=== PATIENT | male | born 1950 | race Caucasian/White ===

== ENCOUNTER 2024-10-30 12:13 | Emergency (ER) | payer MEDICARE, SELFPAY ==
[2024-10-30 12:13] VITALS: BP 157/99; PULSE 109; RESP 16; TEMP 37.1; O2SAT 97
--- NOTE | 2024-10-30 12:15 | ED_ITS ---
HPI - Skin/Abscess/Foreign Bdy General Chief complaint: Skin/Abscess/Foreign Body Stated complaint: left arm swelling and redness Time Seen by Provider: 10/30/24 12:14 Source: patient and EMS Mode of arrival: EMS Limitations: no limitations History of Present Illness HPI narrative: patient is a 74-year-old male with a left elbow insect bite yesterday with a residual redness / cellulitis around the same area of the elbow but not circumferentially. He was sitting outside smoking a cigarette yesterday on his porch and felt an insect bite but did not identify the insect. MD complaint: rash ( Left elbow) Onset (ago): day(s) ( 2) Location: LUE ( left elbow) Severity: moderate Severity scale (1-10): 3 Quality: burning, aching and pruritic Pain Consistency: constant Relieving factors: none Exacerbating factors: none Context: witnessed insect bite ( unclear of which insect did bite him but he felt the bite) Associated symptoms: denies other symptoms Treatments prior to arrival: none Related Data Allergies Allergy/AdvReac Type Severity Reaction Status Date / Time Penicillins Allergy Hives Verified 10/30/24 12:25 Review of Systems Review of Systems: All systems reviewed & are unremarkable except as noted in HPI and below Constitutional: Constitutional: Reports no additional constitutional complaints Eyes: Eyes: Reports no additional eye complaints ENT: Reports system reviewed and no additional complaints, except as documented Cardiovascular: Cardiovascular: Reports no additional cardiovascular complaints Respiratory: Respiratory: Reports no additional respiratory complaints Gastrointestinal: Gastrointestinal: Reports no additional gastrointestinal complaints Genitourinary: Genitourinary: Reports no additional male genitourinary complaints Musculoskeletal: Musculoskeletal: Reports no additional musculoskeletal complaints Integumentary/Breasts: Skin/Breast: Reports system reviewed and no additional complaints, except as docu Neurologic: Reports system reviewed and no additional complaints, except as documented Psychiatric: Psychiatric: Reports no additional psychiatric complaints Endocrine: Endocrine: Reports no additional endocrine complaints Hematologic/Lymphatic: Hematologic/Lymphatic: Reports no additional hematologic/lymphatic complaints Allergic/Immunologic: Allergic/Immunologic: Reports no additional allergic/immunologic complaints Exam Const: General: healthy appearing Nutritional Appearance: well nourished Orientation/consciousness: patient oriented x3 HENMT: Head: normal to inspection Ears: external ears normal Face/Nose/Sinus: Normal external nose present Eyes: Conjunctivae: conjunctivae normal Pupils: Equal, round and reactive pupils present EOM: EOMs intact bilaterally Neck: Neck: normal visual inspection Chest: Chest palpation & inspection: normal inspection of the chest Resp: Effort & Inspection: normal respiratory effort and not labored Auscultation: clear to auscultation bilaterally and no crackles Cardio: Rate: regular rate Rhythm: regular rhythm Heart sounds: no murmurs GI: Inspection: non-distended GI Palp: Yes Soft to palpation and No Tenderness to palpation present (GI) Auscultation: normal bowel sounds : General: Yes bladder normal to palpation Back/Spine/Pelvis: Back: no CVA tenderness Skin: General skin exam: normal color Rashes: rash noted Wounds: no wounds Other: left elbow has erythema /redness around the lateral aspect to medial aspect of the elbow but not circumferentially and it spreads cranially and caudally to a degree (area was outlined with a black marker ) Neuro: General: patient oriented x3, moves all extremities and no meningeal signs Cranial nerves: Yes Nystagmus not present Speech: normal speech Gait exam (Neuro): Normal gait present Extrem: General: normal to inspection Psych: Mental Status: mental status grossly normal Affect: normal affect Attitude: cooperative Course Vital Signs Vital signs: Vital Signs Temperature 37.1 C 10/30/24 12:13 Pulse Rate 109 H 10/30/24 12:13 Respiratory Rate 16 10/30/24 12:13 Blood Pressure 157/99 H 10/30/24 12:13 Pulse Oximetry 97 10/30/24 12:13 Oxygen Delivery Room Air 10/30/24 12:13 Temperature 37.1 C 10/30/24 12:13 Pulse Rate 109 H 10/30/24 12:13 Respiratory Rate 16 10/30/24 12:13 Blood Pressure 157/99 H 10/30/24 12:13 Pulse Oximetry 97 10/30/24 12:13 Oxygen Delivery Room Air 10/30/24 12:13 MDM - Skin/Abscess/Foreign Bdy MDM Narrative Medical decision making narrative: patient is a 74-year-old male with a left elbow cellulitis after insect bite yesterday. We will do Bactrim. Patient does not need labs at this time and should get better without further intervention. Discharge Plan Discharge Clinical Impression: Cellulitis Qualifiers: Site of cellulitis: extremity Site of cellulitis of extremity: upper extremity Laterality: left Qualified Code(s): L03.114 - Cellulitis of left upper limb Insect bites Qualifiers: Encounter type: initial encounter Site of insect bite: upper arm Laterality: left Qualified Code(s): S40.862A - Insect bite (nonvenomous) of left upper arm, initial encounter Patient Disposition: Home Condition: Stable Instructions: Antibiotic Form, Cellulitis (ED) Patient Language: Greenlandic Prescriptions: New sulfamethoxazole-trimethoprim [Bactrim DS] 800-160 mg tablet 1 tablet PO BID 10 Days Qty: 20 0RF Follow-up/Referrals: UNKNOWN,DOCTOR [Non-Staff] - Time of Disposition: 12:38
--- OUTSIDE RECORDS SUMMARY | 2024-10-30 12:51 | XMS_ITS | Encounter Summary ---
Author Organization [facility] Address [address] [place] [address] Care Team Providers Care Guest Services Associate Name Role Phone None, Provider Primary Care Provider Unavaila ble Encounter Details Date Type Department Care Team (Late st Contact Info) Description 09/17/2018 Abstract SFL CONVERSION [address] [place] [address] , Generic Conversion, Social History Tobacco Use Types Packs/Day Years Used Date Smoking Tobacco: Never Assessed Sex and Gender Information Value Date Recorded Sex Assigned at Not on file Legal Sex Male 8:22 PM CDT Gender Identity Not on file Sexual Orientation Not on file documented as of this encounter Plan of Treatment Not on file documented as of this encounter Visit Diagnoses Not on filedocumented in this encounter Care Teams Guest Services Associate Relationship Specialty Start Date End Date None, Provider, PCP - General 12/01/19 documented as of this encounter
--- OUTSIDE RECORDS SUMMARY | 2024-10-30 12:51 | XMS_ITS | Clinical Summary ---
Author Organization [facility] Address [id number] [place] [address] Care Team Providers Care Die Tester Name Role Phone None, Provider MD Primary Care Provider Unavaila ble Allergies No known active allergies Medications No known medications Social History Tobacco Use Types Packs/Day Years Used Date Smoking Tobacco: Every Day Cigarettes Smokeless Tobacco: Never Alcohol Use Standard Drinks/Week Comments Yes 0 (1 standard drink = 0.6 oz pur e alcohol) rarely Sex and Gender Information Value Date Recorded Sex Assigned at Not on file Legal Sex Male 8:22 PM CDT Gender Identity Not on file Sexual Orientation Not on file Last Filed Vital Signs Vital Sign Reading Time Taken Comments Blood Pressure 182/103 12/01/2019 2:12 PM CDT Pulse 96 12/01/2019 2:12 PM CDT Temperature 36.1 C (97 F) 12/01/2019 2:12 PM CDT Respiratory Rate 18 12/01/2019 2:12 PM CDT Oxygen Saturation 99% 12/01/2019 2:12 PM CDT Inhaled Oxygen Concentration - - Weight 72.6 kg (160 lb) 12/01/2019 2:12 PM CDT Height 167.6 cm (5' 6) 12/01/2019 2:12 PM CDT Body Mass Index 25.82 12/01/2019 2:12 PM CDT Plan of Treatment Health Maintenance Due Date Last Done Comments Colorectal Cancer Screening Colonoscopy (10 Years) 1950 Hepatitis C 1968 DTaP, Tdap and Td Vaccines ( 1 - Tdap) 1969 Pneumococcal Vaccine: 50+ Ye ars (1 of 2 - PCV) 1969 Zoster Vaccines (1 of 2) 2000 Annual Medicare Wellness Visit 2015 COVID-19 Vaccine (1 - 2023-2 5 season) 2023 RSV Immunization or 60+ Years (1 - 1-dose 75+ series) 2025 Meningococcal B Vaccine Aged Out No l onger eligible based on patient's age to complete this topic Meningococcal Vaccine Aged Out No colin salvador eligible based on patient's age to complete this topic RSV Immunizations Under 20 Months Aged Out No longer eligible based on patient's age to complete this topic Insurance MEDICARE Care Teams Die Tester Relationship Specialty Start Date End Date None, Provider, PCP - General 12/01/19
== END 2024-10-30 12:55 | disposition home or self-care (01) ==
PROVIDERS: Emergency Provider Emergency Medicine; PCP Internal Medicine
DX: L03.114 Cellulitis of left upper limb (principal); S40.862A Insect bite (nonvenomous) of left upper arm, initial encounter; W57.XXXA Bitten or stung by nonvenomous insect and other nonvenomous arthropods, initial encounter
CPT/HCPCS: 99283

== ENCOUNTER 2024-11-29 11:46 | Emergency (ER) | payer MEDICARE, SELFPAY ==
--- NOTE | ~2024-11-29 | XR_ITS ---
EXAMINATION: XR chest 1V portable DATE: 11/29/2024 12:19 INDICATION: Shortness of breath TECHNIQUE: frontal view of the chest was obtained. COMPARISON: Chest radiograph dated 12/01/2006 FINDINGS: Mild opacities at the left lower lung zone which could represent atelectasis or pneumonia. No pleural effusion or pneumothorax. Heart size is normal. Small to moderate-sized hiatal hernia. IMPRESSION: 1. Opacities in the left lower lung zone which could represent atelectasis or pneumonia. 2. Small to moderate-sized hiatal hernia. Reviewed, dictated and finalized at location A. IMPRESSION: 1. Opacities in the left lower lung zone which could represent atelectasis or p neumonia. 2. Small to moderate-sized hiatal hernia.
[2024-11-29 11:49] VITALS: BP 171/106; PULSE 86; RESP 20; TEMP 36.7; O2SAT 97
--- NOTE | 2024-11-29 11:57 | ECG_ITS ---
Test Date: 2024-11-29 12:01:31 Measurements Intervals [place] Rate: 84 P: -21 [place]: 136 QRS: 56 QRSD: 88 T: 65 QT: 341 QTc: 405 Interpretive Statements SINUS RHYTHM BASELINE ARTIFACT- I, II, III, AVR, AVL, AVF, V1 NORMAL ECG No previous ECG available for comparison Electronically Signed On 11-29-2024 14:08:28 CDT by Chadwick Ceballos D.O.
--- NOTE | 2024-11-29 11:59 | ED.GENADULT ---
HPI - General Adult General Chief complaint: Recheck/Abnormal Lab/Rx Stated complaint: sent by pcp Time Seen by Provider: 11/29/24 11:51 Source: patient Mode of arrival: ambulatory Limitations: no limitations History of Present Illness HPI narrative: 74-year-old male, smoker was sent from his primary care physician's office for -- heart murmur. No chest pain or shortness of breath. No leg swelling. -- Patient went to see a primary care physician for erythematous itchy rash on his back the past 6 months. No fever or chills. Associated symptoms: denies other symptoms Related Data Home Medications ?Medication ?Instructions ?Recorded ?Confirmed ?Last Taken ?Type No Home Medications 11/29/24 11/29/24 Unknown History Allergies Allergy/AdvReac Type Severity Reaction Status Date / Time Penicillins Allergy Hives Verified 11/29/24 12:07 Review of Systems Review of Systems: All systems reviewed & are unremarkable except as noted in HPI and below Constitutional: Constitutional: Reports as per HPI and Reports no additional constitutional complaints Eyes: Eyes: Reports as per HPI and Reports no additional eye complaints ENT: Reports system reviewed and no additional complaints, except as documented and Reports as per HPI Cardiovascular: Cardiovascular: Reports as per HPI and Reports no additional cardiovascular complaints Respiratory: Respiratory: Reports as per HPI, Reports no additional respiratory complaints and Reports cough Gastrointestinal: Gastrointestinal: Reports as per HPI and Reports no additional gastrointestinal complaints Genitourinary: Genitourinary: Reports no additional male genitourinary complaints and Reports as per HPI Musculoskeletal: Musculoskeletal: Reports no additional musculoskeletal complaints and Reports as per HPI Integumentary/Breasts: Skin/Breast: Reports system reviewed and no additional complaints, except as docu Comments: Erythematous rash on his back which is itchy Neurologic: Reports system reviewed and no additional complaints, except as documented and Reports as per HPI Psychiatric: Psychiatric: Reports no additional psychiatric complaints and Reports as per HPI Endocrine: Endocrine: Reports no additional endocrine complaints and Reports as per HPI Hematologic/Lymphatic: Hematologic/Lymphatic: Reports no additional hematologic/lymphatic complaints and Reports as per HPI Allergic/Immunologic: Allergic/Immunologic: Reports no additional allergic/immunologic complaints and Reports as per HPI Exam Narrative: blood pressure is 171/106 Const: General: no acute distress Orientation/consciousness: patient oriented x3 Limitations: no limitations HENMT: Head: normal to inspection Ears: external ears normal Face/Nose/Sinus: Normal external nose present Face and sinus: normal facial exam Mouth: Yes Normal oral and palatal mucosa present Throat: posterior oropharynx normal Eyes: Conjunctivae: conjunctivae normal Pupils: Equal, round and reactive pupils present EOM: EOMs intact bilaterally Direct Ophthalmoscopy: no photophobia Neck: Neck: normal visual inspection, no lymphadenopathy and no meningeal signs Chest: Chest palpation & inspection: normal inspection of the chest Resp: Effort & Inspection: normal respiratory effort Auscultation: diminished lung sounds Cardio: Rate: regular rate Rhythm: regular rhythm GI: GI Palp: Yes Soft to palpation Auscultation: normal bowel sounds Other: no tenderness/ rigidity / rebound. Back/Spine/Pelvis: Back: no CVA tenderness Skin: General skin exam: normal color Other: Erythematous rash on his back Neuro: General: patient oriented x3, moves all extremities, no meningeal signs, no focal motor deficits and CN's II-XI intact bilaterally Cranial nerves: Yes Nystagmus not present Speech: normal speech Psych: Mental Status: mental status grossly normal Affect: normal affect Attitude: cooperative Course Course Emergency Course: hypertension-- follow-up with Dr. Neri systolic murmur in the aortic area suggestive of aortic stenosis chronic bronchitis Vital Signs Vital signs: Vital Signs Temperature 36.7 C 11/29/24 11:49 Pulse Rate 86 11/29/24 11:49 Respiratory Rate 11/29/24 11:49 Blood Pressure 171/106 H 11/29/24 11:49 Pulse Oximetry 97 11/29/24 11:49 Oxygen Delivery Room Air 11/29/24 11:49 Temperature 36.7 C 11/29/24 11:49 Pulse Rate 86 11/29/24 11:49 Respiratory Rate 11/29/24 11:49 Blood Pressure 171/106 H 11/29/24 11:49 Pulse Oximetry 97 11/29/24 11:49 Oxygen Delivery Room Air 11/29/24 11:49 Medical Decision Making [facility] Narrative Medical decision making narrative: hypertension aortic stenosis Differential Diagnosis Differential Diagnosis: mitral regurgitation, Vital Signs Vital Signs: Vital Signs Temperature 36.7 C 11/29/24 11:49 Pulse Rate 86 11/29/24 11:49 Respiratory Rate 11/29/24 11:49 Blood Pressure 171/106 H 11/29/24 11:49 Pulse Oximetry 97 11/29/24 11:49 Oxygen Delivery Room Air 11/29/24 11:49 Temperature 36.7 C 11/29/24 11:49 Pulse Rate 86 11/29/24 11:49 Respiratory Rate 20 11/29/24 11:49 Blood Pressure 171/106 H 11/29/24 11:49 Pulse Oximetry 97 11/29/24 11:49 Oxygen Delivery Room Air 11/29/24 11:49 Lab Data 11/29/24 12:10 11/29/24 12:10 Labs: Lab Results 11/29/24 Range/Units 12:10 WBC 6.7 (4.8-10.8) K/mm3 RBC 4.45 L (4.70-6.10) M/mm3 Hgb 14.0 (12.4-15.3) g/dL Hct 42.2 (37.0-46.0) % MCV 94.8 (78.0-102.0) fL MCH 31.5 H (27.0-31.0) pg MCHC 33.2 (32-36) g/dL RDW 12.2 (11.6-14.4) % Plt Count 326 (150-420) K/mm3 MPV 8.9 (8.7-11.0) fl Immature Gran % (Auto) 0.2 H (0.0-0.0) % Neut % (Auto) 56.7 (50.0-70.0) % Lymph % (Auto) 26.6 (18.0-42.0) % Winston % (Auto) 13.5 H (2.0-11.0) % Eos % (Auto) 2.4 (1.0-6.0) % Baso % (Auto) 0.6 (0.0-1.0) % Lymph # (Auto) 1.77 (1.10-4.50) K/mm3 Winston # (Auto) 0.90 (0.10-0.90) K/mm3 Eos # (Auto) 0.16 (0.02-0.50) K/mm3 Baso # (Auto) 0.04 (0.00-0.10) K/mm3 Abs Immat Gran (auto) 0.01 H (0.00-0.00) K/mm3 Absolute Neuts (auto) 3.78 (1.70-7.20) K/mm3 Absolute Nucleated RBC 0.00 (0.00-0.00) K/mm3 Nucleated RBC % 0.0 (0-0.0) % PT 10.2 (9.50-12.1) Seconds INR 0.9 APTT 27.2 (23.9-30.70) Sec Sodium 136 L (137-145) mmol/L Potassium 4.0 (3.4-5.0) mmol/L Chloride 101 (98-107) mmol/L Carbon Dioxide 29 (22-30) mmol/L Anion Gap 6 (4-12) mmol/L BUN 8 L (9-20) mg/dL Creatinine 0.78 (0.7-1.3) mg/dL Estim Creat Clear Calc 68 ml/min Estimated GFR > 60 (59 - ) Glucose 105 (65-110) mg/dL Calculated Osmolality 280 L (285-295) mOsm/kg Lactic Acid 0.9 (0.4-2.0) mmol/L Calcium 9.4 (8.4-10.2) mg/dL Magnesium 1.7 (1.6-2.3) mg/dL Total Bilirubin 1.0 (0.2-1.3) mg/dL AST 22 (17-59) U/L ALT 12 (6-50) U/L Alkaline Phosphatase 62 (38-126) U/L Total Creatine Kinase 32 L (55-170) U/L Troponin I < 0.012 (0.000-0.034) ng/mL NT-Pro-B Natriuret Pep 240 H (19.9-100) pg/mL Total Protein 6.9 (6.3-8.2) g/dL Albumin 4.0 (3.5-5.1) g/dL Lipase 30 (23-300) U/L TSH 0.433 L (0.465-4.680) uIU/mL ECG Data EKG #1: ECG completion date: 11/29/24 ECG completion time: 12:01 Interpretation: normal sinus rhythm. Normal axis. No ST elevation. Discharge Plan Discharge Clinical Impression: Hypertension Qualifiers: Hypertension type: unspecified Qualified Code(s): I10 - Essential (primary) hypertension Aortic stenosis Qualifiers: Cardiac valve disease etiology: etiology unspecified Qualified Code(s): I35.0 - Nonrheumatic aortic (valve) stenosis Patient Disposition: Home Condition: Stable Instructions: Antibiotic Form, Aortic Stenosis (ED), Hypertension (ED) Patient Language: Georgian Prescriptions: No Action No Home Medications Follow-up/Referrals: Kalen Cagle DO [Primary Care Provider, [facility]] Time of Disposition: 13:08
--- NOTE | 2024-11-29 12:13 | PC.NURSE ---
dr mitchell here and updated on pt.
--- OUTSIDE RECORDS SUMMARY | 2024-11-29 12:13 | XMS_ITS | Encounter Summary ---
Author Organization [facility] Address [address] [place] [address] Care Team Providers Care Solderer Torch Name Role Phone None, Provider Primary Care Provider Unavaila ble Encounter Details Date Type Department Care Team (Late st Contact Info) Description 09/17/2018 Abstract SFL CONVERSION [address] [place] [address] , Generic Conversion, Social History Tobacco Use [...] on filedocumented in this encounter Care Teams Solderer Torch Relationship Specialty Start Date End Date None, Provider, PCP - General 12/01/19 documented as of this encounter
--- OUTSIDE RECORDS SUMMARY | 2024-11-29 12:13 | XMS_ITS | Clinical Summary ---
Author Organization [facility] Address [facility] [place] [address] Care Team Providers Care Marketing Project Coordinator Name Role Phone None, Provider MD Primary [...] complete this topic Insurance MEDICARE Care Teams Marketing Project Coordinator Relationship Specialty Start Date End Date None, Provider, PCP - General 12/01/19
[2024-11-29 12:15] LABS: Hematocrit 42.2 % (37.0-46.0); Hemoglobin 14.0 g/dL (12.4-15.3); Immature Granulocyte Percent A 0.2 % (0.0-0.0); Lymphocytes Absolute Auto 1.77 K/mm3 (1.10-4.50); Mean Corpuscular HGB Conc 33.2 g/dL (32-36); Mean Corpuscular Hemoglobin 31.5 pg (27.0-31.0); Mean Corpuscular Volume 94.8 fL (78.0-102.0); Nucleated Red Blood Cells Absolute Auto 0.00 K/mm3 (0.00-0.00); Nucleated Red Blood Cells Perc 0.0 % (0-0.0); Platelet Count Result 326 K/mm3 (150-420); Red Blood Count 4.45 M/mm3 (4.70-6.10); White Blood Count 6.7 K/mm3 (4.8-10.8)
[2024-11-29 12:28] LABS: Creatine Kinase 32 U/L (55-170); Lipase 30 U/L (23-300); Magnesium 1.7 mg/dL (1.6-2.3)
[2024-11-29 12:29] LABS: Alanine Aminotransferase 12 U/L (6-50); Albumin Level 4.0 g/dL (3.5-5.1); Alkaline Phosphatase 62 U/L (38-126); Anion Gap 6 mmol/L (4-12); Aspartate Amino Transferase 22 U/L (17-59); Bilirubin,Total 1.0 mg/dL (0.2-1.3); Blood Urea Nitrogen 8 mg/dL (9-20); Calcium 9.4 mg/dL (8.4-10.2); Carbon Dioxide 29 mmol/L (22-30); Chloride 101 mmol/L (98-107); Estimated CRCL calculation 68 ml/min; Estimated Glomerular Filt Rate > 60; Glucose 105 mg/dL (65-110); Osmolality Calculated 280 mOsm/kg (285-295); Potassium 4.0 mmol/L (3.4-5.0); Sodium 136 mmol/L (137-145); Total Protein 6.9 g/dL (6.3-8.2)
[2024-11-29 12:30] LABS: INR 0.9; Partial Thromboplastin Time 27.2 Sec (23.9-30.70); Prothrombin Time 10.2 Seconds (9.50-12.1)
[2024-11-29 12:37] LABS: NT Pro B Type Natriuretic Pept 240 pg/mL (19.9-100)
[2024-11-29 12:40] LABS: Troponin I < 0.012 ng/mL (0.000-0.034)
[2024-11-29 12:59] LABS: Thyroid Stimulating Hormone 0.433 uIU/mL (0.465-4.680)
[2024-11-29 13:33] VITALS: BP 161/98; PULSE 80; RESP 20; O2SAT 100
== END 2024-11-29 13:33 | disposition home or self-care (01) ==
PROVIDERS: Emergency Provider Internal Medicine Critical Care Medicine; PCP Family Medicine
DX: I10 Essential (primary) hypertension (principal); I35.0 Nonrheumatic aortic (valve) stenosis; K44.9 Diaphragmatic hernia without obstruction or gangrene; J98.11 Atelectasis; F17.210 Nicotine dependence, cigarettes, uncomplicated
CPT/HCPCS: 36415; 71045; 80053; 82550; 83605; 83690; 83735; 83880; 84443; 84484; 85025; 85610; 85730; 93005; 99284

== ENCOUNTER 2025-01-02 13:50 | Outpatient (CLI) | payer MEDICARE, SELFPAY ==
--- NOTE | 2025-01-02 13:57 | ECHO_ITS ---
Patient Info Name: Kevin Oliveros Age: 74 years : 1950 Gender: Male Ht: 66 in Wt: 195 lbs BSA: 2.06 m2 HR: 90 bpm BP: 198 / 120 mmHg Technical Quality: Good Exam Date: 01/02/2025 1:57 PM Patient Status: O Admit Date: 01/02/2025 Exam Type: CA echo doppler color flow Complete two-dimensional, color flow and Doppler transthoracic echocardiogram is performed. Service Shop Foreman: Katie Yusuf Attending Provider: Kalen Cagle Summary 1. Complete two-dimensional, color flow and Doppler transthoracic echocardiogram is performed. 2. Left ventricular chamber dimension is normal. 3. Left ventricular systolic function is normal, estimated at 60-65. 4. The left ventricular diastolic function is grade I diastolic dysfunction. 5. E/e' 16 is elevated. 6. Left atrial chamber dimension is mildly enlarged. 7. The aortic valve is not well visualized. Cannot determine number of aortic valve leaflets. 8. There is severe aortic valve sclerosis. 9. There is moderate to severe aortic valve stenosis based on a peak velocity of 365 cm/s, mean gradient of 22 mmHg, and aortic valve area of 0.9 cm2. 10. The mitral valve has a mildly calcified annulus. Left Ventricle E/e' 16 is elevated. Left ventricular chamber dimension is normal. Left ventricular systolic function is normal, estimated at 60-65. The left ventricular diastolic function is grade I diastolic dysfunction. Right Ventricle Right ventricular chamber dimension is normal. Right ventricular systolic function is normal and with normal TAPSE 2.1 cm. Left Atria Left atrial chamber dimension is mildly enlarged. Right Atria Right atrial chamber dimension is normal. Aortic Valve The aortic valve is not well visualized. Cannot determine number of aortic valve leaflets. There is severe aortic valve sclerosis. There is no aortic valve regurgitation. There is moderate to severe aortic valve stenosis based on a peak velocity of 365 cm/s, mean gradient of 22 mmHg, and aortic valve area of 0.9 cm2. Pulmonic Valve There is no pulmonic regurgitation. Mitral Valve The mitral valve has a mildly calcified annulus. There is no mitral valve stenosis. There is no mitral valve regurgitation. Tricuspid Valve There is no tricuspid valve regurgitation. Pericardium/Pleural There is no pericardial effusion. Inferior Vena Cava Normal inferior vena cava with >50% collapse upon inspiration consistent with normal right atrial pressure, 5 mmHg. Aorta The aortic root size at the sinus of Valsalva is normal. Left Ventricular Outflow Tract Name Value Normal LVOT 2D LVOT Diameter 2.0 cm LVOT Doppler LVOT Peak Velocity 123 cm/s LVOT Peak Gradient 5 mmHg LVOT Mean Gradient 3 mmHg LVOT VTI 25 cm LVOT VTI/AV VTI Ratio 0.3 LVOT Stroke Volume 76 ml LVOT CO 5.1 l/min LVOT CI 2.5 l/min/m2 Pulmonic Valve Name Value Normal RVOT Doppler RVOT Peak Velocity 84 cm/s RVOT Peak Gradient 3 mmHg PV Doppler PV Peak Velocity 120 cm/s PV Peak Gradient 6 mmHg Mitral Valve Name Value Normal MV Doppler MV Peak Gradient 9 mmHg MV Mean Gradient 4 mmHg MV Area (Cont Eq VTI) 2.3 cm2 MV Diastolic Function MV E Peak Velocity 86 cm/s MV A Peak Velocity 139 cm/s MV E/A 0.6 MV Decel Time (PW) 330 ms MV Annular TDI MV E/e' (Septal) 17.4 MV E/e' (Lateral) 15.5 MV E/e' (Average) 16.4 Tricuspid Valve Name Value Normal Estimated PAP/RSVP RA Pressure 5 mmHg <=5 Aortic Valve Name Value Normal AV Doppler AV Peak Velocity 365 cm/s AV Peak Gradient 37 mmHg AV Mean Gradient 22 mmHg AV VTI 80 cm AV Area (Cont Eq VTI) 0.9 cm2 >=3.0 AV Area (Cont Eq Klever) 1.0 cm2 AV DI (Klever) 0.34 AV Regurgitation 2D LVOT Area 3.1 cm2 Ventricles Name Value Normal LV Dimensions 2D/MM IVS Diastolic Thickness (2D) 0.8 cm 0.6-1.0 LVID Diastole (2D) 4.2 cm 4.2-5.8 LVIW Diastolic Thickness (2D) 1.2 cm 0.6-1.0 LVID Systole (2D) 2.8 cm 2.5-4.0 LVOT Diameter 2.0 cm LV Mass (2D Cubed) 145.69 g 88.00-224.00 LV Mass Index (2D Cubed) 71 g/m2 49-115 Relative Wall Thickness (2D) 0.58 <=0.42 LV Fractional Shortening/Ejection Fraction 2D/MM LV Fractional Shortening (2D) 34 % 25-43 LV EF (2D Teichholz) 63 % LV Diastolic Volume (4C MOD) 105 ml LV EF (4C MOD) 60 % LV Diastolic Volume (2C MOD) 113 ml LV EF (2C MOD) 57 % LV Diastolic Volume (BP MOD) 114 ml 62-150 LV Diastolic Volume Index (BP MOD) 55 ml/m2 34-74 LV Systolic Volume (BP MOD) 45 ml 21-61 LV Systolic Volume Index (BP MOD) 22 ml/m2 11-31 LV EF (BP MOD) 61 % 52-72 LV Diastolic Length (4C) 8.3 cm LV Systolic Length (4C) 7.2 cm LV Stroke Volume (4C MOD) 63 ml Atria Name Value Normal LA Dimensions LA Volume (4C A-L) 42 ml LA Volume (BP A-L) 49 ml RA Dimensions RA Systolic Major [place] Length (4C) 4.7 cm 2.1-2.7 RA Area (4C) 11.6 cm2 <=18.0 Report Signatures
--- OUTSIDE RECORDS SUMMARY | 2025-01-02 14:03 | XMS_ITS | Encounter Summary ---
Author Organization [facility] Address [address] [place] [address] Care Team Providers Care Hacksaw Inspector Name Role Phone None, Provider Primary Care Provider Unavaila ble Encounter Details Date Type Department Care Team (Late st Contact Info) Description 09/17/2018 Abstract SFL CONVERSION [address] [place] [address] , Generic Conversion, Social History Tobacco Use [...] on filedocumented in this encounter Care Teams Hacksaw Inspector Relationship Specialty Start Date End Date None, Provider, PCP - General 12/01/19 documented as of this encounter
--- OUTSIDE RECORDS SUMMARY | 2025-01-02 14:03 | XMS_ITS | Clinical Summary ---
Author Organization [facility] Address Formerly [facility], [facility] [place] [address] Care Team Providers Care Operations Management Trainee Name Role Phone None, Provider MD Primary [...] COVID-19 Vaccine (1 - 2023-2 5 season) 2024 RSV Immunization or 60+ Years (1 - [...] complete this topic Insurance MEDICARE Care Teams Operations Management Trainee Relationship Specialty Start Date End Date None, Provider, PCP - General 12/01/19
== END 2025-01-02 13:51 | disposition home or self-care (01) ==
PROVIDERS: PCP Family Medicine; Visit Provider Family Medicine
DX: R01.1 Cardiac murmur, unspecified (principal); I50.30 Unspecified diastolic (congestive) heart failure; I35.8 Other nonrheumatic aortic valve disorders
CPT/HCPCS: 93306